=== PATIENT | male | born 1955 | race Caucasian/White ===

== ENCOUNTER 2018-11-20 22:00 | Emergency (ER) | payer MEDICARE, BC ==
[~2018-11-20] VITALS: Ht 175.3 cm; Wt 99.8 kg
[~2018-11-20 22:00] MED LIST: ASPI81EC PO; CELE100 PO; CELE200 PO; CITA20 PO; CPAP; DULO30; DULO60 PO; Docusate Sodiu1 EACH PO; ESCI10 PO; ESCI5 PO; GABA300 PO; GABA300T24; GABA300T24 PO; GAVILAX17 GM PO; HYDACE10B PO; HYDACE5 PO; KETAMINE; KETO10 PO; METO25ER PO; METO50; MORP30ER PO; OMEP20ER PO; ONDA4ODT MM; OXYACE7.5T PO; OXYC1TAB11 PO; PANT40 PO; PROM25; PROM25 PO; PROM25S PR; PROM50S PR; PROMETHEGAN PR; Percocet 5-3251 EACH PO; Percocet 7.5-31 EACH PO; ROSU5 PO; VENL150ER PO; ZOLP10 PO; ZOLP5 PO; Zofran Odt8 MG SL; Zofran4 MG PO; [UNRECOGNIZED DRUG - CODE]
[2018-11-20] MEDS ORDERED: IBUP600 PO (23:06)
== END 2018-11-20 23:42 | disposition home or self-care (01) ==
LOC: ER 22:00
DX: S20.211A Contusion of right front wall of thorax, initial encounter (principal); W01.198A Fall on same level from slipping, tripping and stumbling with subsequent striking against other object, initial encounter; Z79.899 Other long term (current) drug therapy; Z87.891 Personal history of nicotine dependence
CPT/HCPCS: 71101; 99283-25; A9270-GY

== ENCOUNTER 2019-04-06 13:18 | Day surgery (SDC) | payer MEDICARE, BC ==
[~2019-04-06] VITALS: Ht 175.3 cm; Wt 106.0 kg
[~2019-04-06 13:18] MED LIST changes: +IBUP600 PO; +NAPR220 PO; +OXYC15ER PO; +OXYCODONE HCL E15 MG PO
== END 2019-04-06 14:46 | disposition home or self-care (01) ==
LOC: ORSCSDS 13:18
PROVIDERS: Surgery
PROC: 0DBM8ZX Excision of Descending Colon, Via Natural or Artificial Opening Endoscopic, Diagnostic (ICD-10-PCS; principal; 2019-04-06 14:30)
PROC: 0DBL8ZX Excision of Transverse Colon, Via Natural or Artificial Opening Endoscopic, Diagnostic (ICD-10-PCS; principal; 2019-04-06 14:30)
DX: K62.5 Hemorrhage of anus and rectum (principal); D12.3 Benign neoplasm of transverse colon; D12.4 Benign neoplasm of descending colon; Z85.030 Personal history of malignant carcinoid tumor of large intestine; G47.33 Obstructive sleep apnea (adult) (pediatric); E11.9 Type 2 diabetes mellitus without complications; I10 Essential (primary) hypertension; F17.210 Nicotine dependence, cigarettes, uncomplicated
CPT/HCPCS: 82947; 88305; J2704; J7120

== ENCOUNTER 2021-08-14 11:18 | Day surgery (SDC) | payer MEDICARE, BC ==
[~2021-08-14] VITALS: Ht 172.7 cm; Wt 111.3 kg
[~2021-08-14 11:18] MED LIST changes: +ANORO ELLIPTA1 EACH INH; +LOSARTAN POTASS25 MG PO; +MELATONIN5 M1; +MELO7.5 PO; +PRAZ1 PO; +PROAIR DIGIHAL90 MCG INH; +VENL75ER PO
--- NOTE | 2021-08-14 17:52 | NUR ---
PATIENT ARRIVED TO THE FLOOR FROM PACU AT 1600 WITH NO SIGNS OR SYMPTOMS ACUTE DISTRESS NOTED. PATIENT VERY TALKITIVE AND ABLE TO MAKE NEEDS AND WANTS KNOWN. POLAR PACK TO LEFT KNEE. DRESSING TO LEFT KNEE CDI. MEDICATED FOR PAIN SEE EMAR. TOLERATING PO INTAKE WELL. CALL LIGHT AND WATER IN EASY REACH. WILL MONIOTR.
--- NOTE | 2021-08-14 19:16 | NUR ---
PT OBSERVED GETTING OOB WITHOUT ASSISTANCE X2. PT WAS EDUCATED BOTH TIMES TO CALL FOR ASSISTANCE AND THAT HE WILL NEED A STAFF MEMBER AND A GAIT BELT WHEN AMBULATING. PT STATED UNDERSTANDING AND VERBALIZED THAT HE WOULD CALL IF HE NEEDED ASSISTANCE AFTER EDUCATION WAS GIVEN BOTH TIMES. PT DOES NOT APPEAR CONFUSED. WHEN HE SAW STAFF HE QUICKLY TURNED AROUND AND ATTEMPTED TO RETURN TO HIS ROOM. HE ACKNOWLEGED THAT HE REMEMBERED EDUCATION TO NOT GET OOB WITHOUT STAFF BUT DID NOT WISH TO USE THE CALL LIGHT BECAUSE HE FEELS THAT IT WOULD INCONVENIENCE STAFF. PT WAS EDUCATED THAT FOR HIS SAFETY WE WOULD LIKE HIM TO USE THE CALL LIGHT AND THAT HE IS NOT BOTHERSOME TO THE STAFF IF HE USES THE LIGHT. HE WAS ALSO EDUCATED TO MAKE A LIST OF ALL HIS NEEDS SO THEY CAN BE ADDRESSED AT ONE TIME. PT HAS PEN AND PAPER AT BEDSIDE. NOC INSTRUCTOR WATCH ASSEMBLY NOTIFIED.
[2021-08-15 03:58] LABS: BASOPHILS ABSOLUTE AUTO 0.01 K/mm3 (0.00-0.23); BASOPHILS PERCENT AUTO 0 % (0-2); EOSINOPHILS PERCENT AUTO 0 % (0-6); Hematocrit 25.4 % (37.0-53.0); Hemoglobin 7.7 g/dL (13.5-17.5); IMMATURE GRAN ABSOLUTE AUTO 0.05 K/mm3 (0.00-0.10); IMMATURE GRAN PERCENT AUTO 0 % (0-1); LYMPHOCYTES ABSOLUTE AUTO 0.76 K/mm3 (0.84-5.20); LYMPHOCYTES PERCENT AUTO 6 % (21-46); MONOCYTES PERCENT AUTO 4 % (4-13); Mean Corpuscular HGB 21.6 pg (26.0-34.0); Mean Corpuscular HGB Conc 30.3 g/dL (31.5-36.5); Mean Corpuscular Volume 71 fL (80-100); Mean Platelet Volume 9.8 fL (9.1-12.4); NEUTROPHILS ABSOLUTE AUTO 10.94 K/mm3 (1.96-9.15); NEUTROPHILS PERCENT AUTO 89 % (41-73); Platelet Count 243 K/mm3 (150-400); RDW Coefficient Variation 17.8 % (11.7-14.2); Red Blood Cell Count 3.56 M/mm3 (4.30-5.90); White Blood Cell Count 12.26 K/mm3 (4.00-11.30)
--- NOTE | 2021-08-15 04:24 | NUR ---
SHIFT SUMMARY: PT POD#1 FOR A LEFT TKA. AQUACEL+ELIAZAR WRAP C/D/I WITH POLAR PACK IN PLACE. PAIN WELL MANAGED WITH 10MG OXYCODONE AND SCHEDULED TORADOL+TYLENOL. IV ABX COMPLETE. PT DRINKING ADEQUATE AMOUNT OF FLUIDS AND SALINE LOCKED. VOIDING WELL. SBA WITH FWW+GB. PT USING CPAP THROUGHOUT NIGHT WITH PULSE OX IN PLACE. IN BEGINNING OF SHIFT PT FOUND STANDING NEAR BED INDEPENDENTLY WITH FWW. PT REMINDED THAT HE NEEDS TO CALL BEFORE GETTING OUT OF BED. PT HAS BEEN COMPLIENT SINCE. PLAN FOR PHYSICAL THERAPY AND POSSIBLE DISCHARGE HOME.
[2021-08-15 04:44] LABS: Anion Gap 9 mmol/L (6-16); Blood Urea Nitrogen 22 mg/dL (8-24); Bun/Creatinine Ratio 23.8 (12.0-20.0); CO2, Blood 27 mmol/L (21-32); Calcium, Blood 9.5 mg/dL (8.5-10.1); Chloride, Blood 102 mmol/L (98-108); Creatinine, Blood 0.92 mg/dL (0.60-1.20); Glomerular Filtration Rate >60 (60-); Glucose, Blood 113 mg/dL (70-99); Potassium, Blood 4.3 mmol/L (3.5-5.5); Sodium, Blood 138 mmol/L (136-145)
[2021-08-15] MEDS ORDERED: ASPI81CH PO (07:29)
[2021-08-15] MEDS ORDERED: Percocet 5-3251 EACH PO (07:30)
--- NOTE | 2021-08-15 11:30 | NUR ---
PATIENT D/C'D TO HOME WITH SPOUSE AT THIS TIME, STATES UNDERSTANDING OF MEDS, WOUND CARE, F/U APPT, OP PT, ETC. MEDICATED FOR PAIN AT THIS TIME PATIENT ONE HOUR FROM HOME AND NEEDS TO P/U RX BEFORE THEN.
== END 2021-08-15 11:24 | disposition home or self-care (01) ==
LOC: ORSCMMR 11:18 → ORD 12:30 → SURS 15:56 → ORSCMMR 08-15 11:24
PROVIDERS: Orthopaedic Surgery
PROC: 8E0Y0CZ Robotic Assisted Procedure of Lower Extremity, Open Approach (ICD-10-PCS; principal; 2021-08-14 12:30)
PROC: 0SPD04Z Removal of Internal Fixation Device from Left Knee Joint, Open Approach (ICD-10-PCS; principal; 2021-08-14 12:30)
PROC: 0SRD0JA Replacement of Left Knee Joint with Synthetic Substitute, Uncemented, Open Approach (ICD-10-PCS; principal; 2021-08-14 12:30)
DX: M17.12 Unilateral primary osteoarthritis, left knee (principal); I10 Essential (primary) hypertension; J44.9 Chronic obstructive pulmonary disease, unspecified; Z87.891 Personal history of nicotine dependence; G47.33 Obstructive sleep apnea (adult) (pediatric); G62.9 Polyneuropathy, unspecified; E66.01 Morbid (severe) obesity due to excess calories; Z68.37 Body mass index [BMI] 37.0-37.9, adult; Z79.899 Other long term (current) drug therapy
CPT/HCPCS: 27447; 20680; S2900; 36415; 73560-LT; 80048; 85025; 94640; 94660; 94762; 97110; 97116; 97162; A9270; C1776; J0171; J0690; J0735; J1100; J1885; J2250; J2405; J2704; J2795; J3010; J7120

== ENCOUNTER 2021-10-26 03:15 | Day surgery (SDC) | payer MEDICARE, BC ==
[~2021-10-26 03:15] MED LIST changes: +ASPI81CH PO
[2021-10-26] MEDS ORDERED: OXYC10TA19 PO (11:35)
[2021-10-26] MEDS ORDERED: PREG150 PO (11:35)
[2021-10-26] MEDS ORDERED: METO50ER PO (11:36)
[2021-10-26] MEDS ORDERED: NITR.4SL SL (11:36)
[2021-10-26] MEDS ORDERED: MELO7.5 PO (11:40)
== END 2021-10-26 12:13 | disposition home or self-care (01) ==
LOC: ATC 03:15
DX: D50.8 Other iron deficiency anemias (principal); K92.2 Gastrointestinal hemorrhage, unspecified; Z85.038 Personal history of other malignant neoplasm of large intestine; J43.9 Emphysema, unspecified; I10 Essential (primary) hypertension; Z87.891 Personal history of nicotine dependence
CPT/HCPCS: 36415; 86850; 86900; 86901; 86923; J1940; J7050; P9016

== ENCOUNTER 2022-09-05 15:34 | Observation (INO) | payer MEDICARE, BC ==
[~2022-09-05] VITALS: Ht 172.7 cm; Wt 108.8 kg
[~2022-09-05 15:34] MED LIST changes: +METO50ER PO; +NITR.4SL SL; +OXYC10TA19 PO; +PREG150 PO
[2022-09-05] MEDS ORDERED: BRINTELLIX20 MG PO (15:57)
[2022-09-05] MEDS ORDERED: PREG150 PO (15:58)
[2022-09-05 16:18] LABS: BASOPHILS ABSOLUTE AUTO 0.03 K/mm3 (0.00-0.23); BASOPHILS PERCENT AUTO 1 % (0-2); EOSINOPHILS ABSOLUTE AUTO 0.11 K/mm3 (0.00-0.68); EOSINOPHILS PERCENT AUTO 2 % (0-6); Hematocrit 35.1 % (37.0-53.0); Hemoglobin 11.8 g/dL (13.5-17.5); IMMATURE GRAN PERCENT AUTO 0 % (0-1); LYMPHOCYTES ABSOLUTE AUTO 1.43 K/mm3 (0.84-5.20); LYMPHOCYTES PERCENT AUTO 23 % (21-46); MONOCYTES ABSOLUTE AUTO 0.35 K/mm3 (0.16-1.47); MONOCYTES PERCENT AUTO 6 % (4-13); Mean Corpuscular HGB 29.5 pg (26.0-34.0); Mean Corpuscular HGB Conc 33.6 g/dL (31.5-36.5); Mean Corpuscular Volume 88 fL (80-100); Mean Platelet Volume 10.5 fL (9.1-12.4); NEUTROPHILS PERCENT AUTO 70 % (41-73); Platelet Count 276 K/mm3 (150-400); RDW Coefficient Variation 13.3 % (11.7-14.2); RDW Standard Deviation 42.6 fL (35.1-46.3); White Blood Cell Count 6.32 K/mm3 (4.00-11.30)
[2022-09-05 16:55] LABS: Anti-Xa UFH, PHA Monitoring <0.10 IU/mL; International Normalized Ratio 1.03; Prothrombin Time Results 10.8 Sec (9.7-11.5)
[2022-09-05 16:56] LABS: Albumin, Blood 3.7 g/dL (3.4-5.0); Albumin/Globulin Ratio 1.2 (0.8-1.8); Bilirubin, Total 0.3 mg/dL (0.1-1.0); Bun/Creatinine Ratio 19.4 (12.0-20.0); Calcium, Blood 9.3 mg/dL (8.5-10.1); Creatinine, Blood 0.83 mg/dL (0.60-1.20); Globulin, Blood 3.1 g/dL (2.2-4.0); Potassium, Blood 3.9 mmol/L (3.5-5.5); Total Protein, Blood 6.8 g/dL (6.4-8.2)
[2022-09-06 02:19] LABS: BASOPHILS ABSOLUTE AUTO 0.04 K/mm3 (0.00-0.23); BASOPHILS PERCENT AUTO 1 % (0-2); EOSINOPHILS ABSOLUTE AUTO 0.24 K/mm3 (0.00-0.68); EOSINOPHILS PERCENT AUTO 4 % (0-6); Hematocrit 34.2 % (37.0-53.0); Hemoglobin 11.4 g/dL (13.5-17.5); IMMATURE GRAN ABSOLUTE AUTO 0.04 K/mm3 (0.00-0.10); IMMATURE GRAN PERCENT AUTO 1 % (0-1); LYMPHOCYTES ABSOLUTE AUTO 1.97 K/mm3 (0.84-5.20); LYMPHOCYTES PERCENT AUTO 31 % (21-46); MONOCYTES ABSOLUTE AUTO 0.52 K/mm3 (0.16-1.47); MONOCYTES PERCENT AUTO 8 % (4-13); Mean Corpuscular HGB 29.4 pg (26.0-34.0); Mean Corpuscular HGB Conc 33.3 g/dL (31.5-36.5); Mean Corpuscular Volume 88 fL (80-100); Mean Platelet Volume 10.3 fL (9.1-12.4); NEUTROPHILS ABSOLUTE AUTO 3.61 K/mm3 (1.96-9.15); NEUTROPHILS PERCENT AUTO 56 % (41-73); Platelet Count 262 K/mm3 (150-400); RDW Coefficient Variation 13.4 % (11.7-14.2); RDW Standard Deviation 43.1 fL (35.1-46.3); Red Blood Cell Count 3.88 M/mm3 (4.30-5.90); White Blood Cell Count 6.42 K/mm3 (4.00-11.30)
[2022-09-06 02:31] LABS: CPK Creatine Kinase 85 U/L (39-308)
[2022-09-06 02:34] LABS: Albumin, Blood 3.2 g/dL (3.4-5.0); Bilirubin, Total 0.3 mg/dL (0.1-1.0); Bun/Creatinine Ratio 18.6 (12.0-20.0); Creatinine, Blood 0.92 mg/dL (0.60-1.20); Globulin, Blood 3.1 g/dL (2.2-4.0); Potassium, Blood 3.8 mmol/L (3.5-5.5); Total Protein, Blood 6.3 g/dL (6.4-8.2)
--- NOTE | 2022-09-06 06:05 | NUR ---
SHIFT SUMMARY NOC PT A/O X 4. INDEPENDENT IN ROOM. PT ADMIT FROM ED WITH C/O CP. PT IS ON TELE AR NSR HR 67 BPM. PT HAS HEPARIN INFUSING AT 25.5 MLS/HR IN IV L WRIST. PT ALSO HAS IV ACCESS IN RAC FOR IV RX. PT IS CONT OF BOTH AND USES BEDSIDE URINAL AND CALLS APPROPRIATLEY. PT WAS ADMITTED FOR OBSERVATION WITH POSSIBLE DC 09/06/22. PT IS CURRENTLY RESTING WITH BED RAILS UP, BED IN LOWEST POSITION, AND CALL LIGHT WITHIN REACH.
[2022-09-06 10:34] LABS: CPK Creatine Kinase 70 U/L (39-308)
--- NOTE | 2022-09-06 17:03 | NUR ---
SHIFT SUMMARY PATIENT IS ALERT AND ORIENTED. PATIENT HAS BEEN IND IN ROOM. PATIENT HAS HAD NO ACUTE EVENTS THIS SHIFT. VITAL SIGNS REVIEWED. PATIENT HAD FIRST PART OF STRESS TEST THIS AFTERNOON. PATIENT IS TO REMAIN CAFFEINE FREE AFTER 1999 AND NPO EXCEPT FOR WATER AFTER MIDNIGHT FOR 2ND PART TOMMORROW. PATIENT HAS COMPLAINED OF PAIN AND NAUSEA, MEDICATED PER EMAR. PATIENT HAS NOT COMPLAINED OF SOB THIS SHIFT. BED IN LOCKED AND LOWEST POSITION. CALL LIGHT IN PLACE. WILL MONITOR UNTIL SHIFT CHANGE.
--- NOTE | 2022-09-07 00:02 | NUR ---
NOTIFIED BY U APPEALS ANALYST PT HAD ST ELEVATION OF 7.5 IN MCL FOR 2 MINUTES AT 2345. PT IS ASYMPTOMATIC AND IS CURRENTLY RUNNING SINUS RHYTHM HR 64 BPM. DIE SINKING MACHINE OPERATOR NOTIFIED. JARAD.
--- NOTE | 2022-09-07 03:21 | NUR ---
NOTIFIED BY U CARPET CUTTER THAT PT ST MCL WAS AT 7.0. PT IS ASYMPTOMATIC AT THIS TIME. RECOMMENDED THAT PARAMETERS BE INCREASED TO 8.2-8.4 FOR ALARM SETTINGS. HOSPITALIST NOTIFIED AND GAVE INSTRUCTIONS TO INCREASE ALARM SETTINGS TO 8.2-8.4.
--- NOTE | 2022-09-07 04:49 | NUR ---
SHIFT SUMMARY NOC PT A/OX4. VSS. PT ON TELE RUNNING NSR HR 65 BPM. PT HAD A COUPLE RUNS OF ST ELEVATION AND CHARGE NURSE AND HOSPITALIST WERE BOTH NOTIFIED. HOSPITALIST ORDERED ALARM PARAMETERS INCREASED TO 8.2-8.4. PT WAS ASYMPTOMATIC. EACH INCIDENCE OCCURED WHEN PT GOT UP TO USE RESTROOM. PT HAD SOME NAUSEA DURING SHIFT AND WAS MEDICATED PER EMAR. PT IS NPO OF 0000 09/07/22 FOR UMPCOMING STRESS TEST @ 0900 ON 09/07/22. PT CURRENTLY AWAKE WATCHING MOVIE ON LAPTOP WITH BED RAILS UP, BED IN LOWEST POSITION, AND CALL LIGHT WITHIN REACH.
[2022-09-07 06:47] LABS: CHOL/HDL RATIO 4.2; Cholesterol 183 mg/dL (50-200); HDL Cholesterol 44 mg/dL (>39); Low Density Lipoprotein Chol 89 mg/dL (0-110); Triglycerides 250 mg/dL (30-160); Very Low Density Lipoprot Chol 50 mg/dL (6-32)
[2022-09-07 09:49] LABS: CPK Creatine Kinase 64 U/L (39-308)
[2022-09-07 09:51] LABS: Creatine Kinase MB <1.0 ng/mL (0.0-3.6); Creatine Kinase MB Index Unable to Calculate (0.0-4.0)
[2022-09-07] MEDS ORDERED: METO25ER PO (16:51)
[2022-09-07] MEDS ORDERED: FENO67 PO (16:52)
[2022-09-07] MEDS ORDERED: NITR.4SL SL (16:52)
[2022-09-07] MEDS ORDERED: ASPI81CH PO (16:52)
--- NOTE | 2022-09-07 18:44 | NUR ---
DISCHARGE SUMMARY PATIENT IS ALERT AND ORIENTED. PATIENT IS BEING DISCHARGED HOME WITH PATIENTS DAUGHTER TRANSPORTING PATIENT. PATIENT HAS 2ND PART OF STRESS TEST DONE TODAY. PATIENT ADVISED OF RESULTS BY
== END 2022-09-07 18:48 | disposition home or self-care (01) ==
LOC: ER 15:34 → MEDS 15:35
PROVIDERS: Emergency Medicine; Internal Medicine; ADMIT Internal Medicine
DX: R07.89 Other chest pain (principal); I44.7 Left bundle-branch block, unspecified; I25.10 Atherosclerotic heart disease of native coronary artery without angina pectoris; I10 Essential (primary) hypertension; G47.33 Obstructive sleep apnea (adult) (pediatric); G62.9 Polyneuropathy, unspecified; F32.A Depression, unspecified
CPT/HCPCS: 36415; 71045; 78452; 80053; 80061; 82550; 82553; 83880; 84484; 85025; 85520; 85610; 93005; 93010; 93017; 96365; 96366; 96372; 96375; 96376; 99285-25; A9270; A9500; G0378; J0280; J1644; J1650; J2405; J2550; J2785; J3010